=== PATIENT | female | born 1985 | race Caucasian/White ===

== ENCOUNTER 2018-01-03 10:03 | Emergency (ER) | payer OTHER ==
[~2018-01-03] VITALS: Ht 175.3 cm; Wt 86.2 kg
[~2018-01-03 10:03] MED LIST: ALBUTEROL2.5 MG/31 INH; AZITHROMYCIN 2250 MG PO; MEDROLDOSEPACK PO; TUSSIONEX PENN473 ML PO
[2018-01-03] MEDS ORDERED: MOBIC7.5 MG PO (11:08)
[2018-01-03] MEDS ORDERED: TRAMADOL 50 MG50 MG PO (11:08)
[2018-01-03 11:37] VITALS: BP 124/58
== END 2018-01-03 11:39 | disposition home or self-care (01) ==
LOC: M.ERS 10:03
DX: M25.551 Pain in right hip (principal); F17.210 Nicotine dependence, cigarettes, uncomplicated; Z88.5 Allergy status to narcotic agent